=== PATIENT | male | born 1955 | race Caucasian/White ===

== ENCOUNTER 2016-08-26 19:31 | Inpatient (IN) | payer MEDICAID ==
[~2016-08-26] VITALS: Ht 188 cm; Wt 97.4 kg
--- NOTE | ~2016-08-26 | EKG ---
PATIENT: PAOLA DANGELO UNIT #: [id number] Ventricular Rate: 56 BPM Atrial Rate: 56 BPM P-R Interval: 132 ms QRS Duration: 96 ms Q-T Interval: 458 ms QTC Calculation(Bezet): 441 ms P [place]: -4 degrees Calculated R [place]: 68 degrees Calculated T [place]: 69 degrees Diagnosis Line: Sinus bradycardia Diagnosis Line: Otherwise normal ECG Diagnosis Line: No previous ECGs available Diagnosis Line: Confirmed by MILA BARRIOS MD ([id number]) on Diagnosis Line: 08/27/2016 3:52:18 PM INTERPRETING MD: DENIS HERBERT
--- NOTE | ~2016-08-26 | US67 ---
[facility] A Service of [facility] & [facility] RADIOLOGY TEXT RESULTS PATIENT: PAOLA DANGELO LOCATION: C3A 314-01 : 57 UNIT #: [id number] AGE: [address]: Roseanna Van MD SEX: M ORDER DR: [id number] [facility] [address] [place], [place] [address] [id number] I MR#: [id number] Acc #: [id number] NAME: PAOLA DANGELO : 1955 SEX: M STUDY DATE/TIME: 08/26/2016 22:28 UNIT: C3A PCU ROOM: [facility] STUDY DESCRIPTION: US Gallbladder Attending Physician: Roseanna Van M.D. Ordering Physician: Toño Wood D.O. Primary Care Physician: Marilou Buenrostro M.D. MEDICAL IMAGING REPORT This report is preliminary unless electronic signature is present EXAM Right upper quadrant abdominal ultrasound. INDICATIONS Elevated liver enzyme levels. Atypical chest pain, right upper quadrant abdominal pain today. PROCEDURE Jama-scale and Doppler imaging right upper quadrant of the abdomen COMPARISON None. FINDINGS Pancreas is predominantly obscured and not well seen on this study. Liver measures 17.8 cm in length. Liver shows coarsened echotexture. No liver mass is seen on submitted images. There is a small amount of sludge in the gallbladder. No wall thickening or pericholecystic fluid. Common duct measures 3 mm. Right kidney measures 13.4 cm and contains a 2.5 cm cyst. There is a 1.3 cm cyst in the upper pole of the right kidney. IMPRESSION 1. Right renal cyst. 2. Sludge in the gallbladder, but no evidence for acute cholecystitis or bile duct dilation. 3. Liver has coarsened echotexture, which is nonspecific. It could be seen in the setting of chronic liver disease or hepatic steatosis. Dictated by... Shelton Logan M.D. THIS IS AN ELECTRONICALLY VERIFIED REPORT Shelton Logan M.D. at 08/27/2016 9:53 PM [facility] A Service of [facility] RADIOLOGY TEXT RESULTS PATIENT: PAOLA DANGELO LOCATION: C3A 314-01 : 57 UNIT #: [id number] AGE: [address]: Roseanna Van MD SEX: M ORDER DR: Francia TD: 08/27/2016 13:24 JOB #: [id number] MEDICAL IMAGING REPORT Page 1 of 1 COPY
--- NOTE | ~2016-08-26 | CO ---
Unit #: [id number] #: [id number] Patient: PAOLA YOU [id number] [address] [address] [id number] I MR#: [id number] NAME: PAOLA YOU ROOM: 314 Age: 60 Sex: M Admission Date: 08/26/2016 : 1955 Attending Physician: Roseanna Van M.D. Primary Care Physician: Marilou Buenrostro M.D. Consultation Date: 08/28/2016 CONSULTATION REPORT PRIMARY CARE PHYSICIAN Marilou Buenrostro M.D. REASON FOR CONSULTATION Abdominal pain and abnormal LFTs. HISTORY OF PRESENTING ILLNESS Mr. You is a 60 year gentleman, who was admitted yesterday with complains of abdominal pain, which is mostly in the right upper quadrant and the lower chest area. It has been severe, very intermittent, and raised it up to 9 to 10 on a scale of 1 to 10. He has had no chills or fever. He has not had any similar symptoms in the past. The patient has a history of moderate alcoholic consumption, however, slowed down quite a bit in the last several years. PAST MEDICAL HISTORY Significant for hypertension. ALLERGIES None. HOME MEDICATIONS Included Zestoretic, Singulair, Benadryl, and Flexeril. FAMILY HISTORY Noncontributory. SOCIAL HISTORY Moderate alcohol use. History of heavy alcohol use in the past. Smoker. REVIEW OF SYSTEMS Complete 10-point review of systems was done, which is unremarkable other than as mentioned above. PHYSICAL EXAMINATION VITAL SIGNS: Stable. Afebrile. GENERAL: No acute distress. HEENT: Pupils are equal and reactive. Oral mucosa moist. NECK: No JVD. No lymphadenopathy. CHEST: Clear to auscultation bilaterally. CARDIOVASCULAR: Regular rate and rhythm. No murmurs. ABDOMEN: Very tender in right upper quadrant. No guarding. No rebound. No organomegaly or ascites. Unit #: [id number] #: [id number] Patient: PAOLA YOU EXTREMITIES: Without clubbing, cyanosis, or edema. NEUROLOGIC: Intact. SKIN: Warm and dry. DIAGNOSTIC STUDIES LABORATORY RESULTS: Bilirubin today of 7, has gone up from 3.8 over 2 days mostly direct. AST 174, ALT 269, and alkaline phosphatase of 308. Amylase and lipase were normal. Cardiac enzymes were normal. CBC shows white count at 5.7, hemoglobin 13.9, and platelet count of 143. IMAGING STUDIES: Ultrasound of the abdomen was done, shows a sludge in the gallbladder. HIDA scan was done, which shows uptake of the dye in the liver, but no excretion into the duct suggesting possible chronic liver disease. ASSESSMENT AND PLAN The patient's symptoms are worsening LFTs predominantly obstructive pattern suggests biliary obstruction with stones, otherwise I would recommend doing an upper endoscopy and endoscopic retrograde cholangiopancreatography for further evaluation. We will continue with antibiotics and supportive care as well as pain medications. Risks and benefits of the procedure were discussed with the patient and he is agreeable to proceed. The patient understands the risks of pancreatitis also. Thank you, Dr. Paulson for this interesting consult. We will follow along. Dictated by... Melecio Sánchez/silvia TD: 08/28/2016 14:49 JOB #: [id number] CONSULTATION REPORT Page 1 of 1 X Finn Stinson MD CONSULTATION REPORT
--- NOTE | ~2016-08-26 | DS ---
Unit #: [id number] #: [id number] Patient: PAOAL DANGELO [id number] [address] [address] [id number] I MR#: [id number] NAME: PAOLA DANGELO ROOM: 314 Age: 60 Sex: M Admission Date: 08/26/2016 : 1955 Discharge Date: Attending Physician: Roseanna Van M.D. Primary Care Physician: Marilou Buenrostro M.D. DISCHARGE SUMMARY DISCHARGE DIAGNOSES 1. Acute cholecystitis. 2. Acute cholangitis. 3. Biliary stone, status post endoscopic retrograde cholangiopancreatography and laparoscopic cholecystectomy. 4. Sepsis, present on admission. 5. Chest pain, likely referred pain from biliary colic. 6. Hypertension, uncontrolled. 7. Hyponatremia. 8. Hypokalemia. 9. Seasonal allergies. 10. Transaminitis secondary to acute cholangitis. CONSULTATIONS 1. Dr. Stinson. 2. LSA. PROCEDURES The patient had ERCP which shows dilated bile duct, 15 mm. Two large stones present. Sphincterotomy performed. A lot of pus and two stones extracted. 7 x 7 common bile duct stent placed. Also, patient had laparoscopic cholecystectomy on 08/30/2016. LAB DATA Hepatitis panel negative. Sodium 138, potassium 4.1, creatinine 1.1, total bilirubin 2.2, AST 49, ALT 136, alkaline phosphatase 239, albumin 3.1, WBC 5.4, hemoglobin 13.1, platelets 161. Troponins negative. EKG - normal sinus rhythm. HIDA scan shows diffuse uptake of liver. No excretion of biliary system in two hours. That would suggest profound liver dysfunction. Lipase 49. ALLERGIES None. DISCHARGE MEDICATIONS 1. ProAir 90 mcg inhalation four times daily. 2. Lisinopril with hydrochlorothiazide 20/12.5, one tablet p.o. daily. 3. Kathy 25 mg p.o. daily. 4. Nicotine 21 mg daily. 5. Colace 100 p.o. daily p.r.n. constipation. 6. Singulair 10 daily. Unit #: [id number] #: [id number] Patient: PAOLA DANGELO 7. Flexeril 10 mg q.8 p.r.n. muscle spasm. 8. Lortab 5 mg p.o. q.6 p.r.n. pain. HOSPITALIZATION COURSE 60-year-old admitted because of abdominal pain and chest pain. Abdominal pain secondary to acute cholangitis and acute cholecystitis: The patient is seen by Dr. Stinson and LSA. Patient had ERCP and sphincterotomy done . Today on 08/30, the patient had laparoscopic cholecystectomy. Currently feeling better. He wants to eat if tolerates okay and if okay with surgeon patient will be discharged home later today. I am going to check with the surgeon if patient needs antibiotic to take home. If needed, I am going to do a prescription. Waiting on surgeon's callback currently. Chest pain, likely from referred pain from acute cholecystitis: Patient feeling better, was on nitro. EKG negative, troponins negative. Hypertension, uncontrolled: Continue with current home medications. Hyponatremia and hypokalemia, likely from hydrochlorothiazide: Currently resolved. Patient will be discharged home if tolerating regular diet okay and okay with surgeon. Follow with PCP in one week time, follow with LSA in one week time. Dictated by... Melecio Freedman TD: 08/30/2016 11:34 JOB #: [id number] DISCHARGE SUMMARY Page 1 of 1 X Roseanna Van MD DISCHARGE SUMMARY
--- NOTE | ~2016-08-26 | CR84 ---
[facility] A Service of [facility] RADIOLOGY TEXT RESULTS PATIENT: PAOLA DANGELO LOCATION: C3A PC 314-01 : 57 UNIT #: [id number] AGE: [address]: Roseanna Van MD SEX: M ORDER DR: [id number] [address] [place], [place] [address] [id number] I MR#: [id number] Acc #: [id number] NAME: PAOLA DANGELO : 1955 SEX: M STUDY DATE/TIME: 08/28/2016 11:15 UNIT: C3A PCU ROOM: [facility] STUDY DESCRIPTION: CR ERCP Biliary and Pancr SI Attending Physician: Roseanna Van M.D. Ordering Physician: Finn Stinson M.D. Primary Care Physician: Marilou Buenrostro M.D. MEDICAL IMAGING REPORT This report is preliminary unless electronic signature is present EXAM ERCP HISTORY Obstructive jaundice. Fluoroscopy time: 7 minutes 53 seconds. FINDINGS Twelve fluoroscopic spot films were obtained during ERCP procedure performed by the attending endoscopist. Injection of the common bile duct demonstrates moderate intra- and extrahepatic biliary ductal dilatation. Multiple filling defects in the common bile duct are compatible with stones. No strictures identified. Stone extraction was performed. Biliary stent was placed at the conclusion of the procedure. Pancreatic duct was not injected. IMPRESSION 1. Multiple stones in the common bile duct. Stone extraction was performed. 2. Moderate intra- and extrahepatic biliary ductal dilatation. 3. Biliary stent was placed at the conclusion of the procedure. 4. Pancreatic duct was not injected. Dictated by... Tenzin Pisano M.D. THIS IS AN ELECTRONICALLY VERIFIED REPORT Tenzin Pisano M.D. at 08/29/2016 11:01 PM DFL/psc TD: 08/29/2016 00:59 [facility] A Service [facility] RADIOLOGY TEXT RESULTS PATIENT: PAOLA DANGELO LOCATION: C3A PC 314- : 57 UNIT #: [id number] AGE: [address]: Roseanna Van MD SEX: M ORDER DR: JOB #: [id number] MEDICAL IMAGING REPORT Page 1 of 1 COPY
--- NOTE | ~2016-08-26 | CR72 ---
[facility] A Service of [facility] & [facility] RADIOLOGY TEXT RESULTS PATIENT: PAOLA DANGELO LOCATION: [facility] 314-01 : 57 UNIT #: [id number] AGE: [address]: Roseanna Van MD SEX: M ORDER DR: [id number] [facility] [address] [place], [place] [address] [id number] I MR#: [id number] Acc #: [id number] NAME: PAOLA DANGELO : 1955 SEX: M STUDY DATE/TIME: 08/26/2016 19:52 UNIT: A U ROOM: [facility] STUDY DESCRIPTION: CR Chest Single View Portable Attending Physician: Roseanna Van M.D. Ordering Physician: Ed Doctor [id number] [facility] Primary Care Physician: Marilou Buenrostro M.D. MEDICAL IMAGING REPORT This report is preliminary unless electronic signature is present EXAM Portable chest 08/26/2016 HISTORY 60-year-old male with left-sided chest pain beginning today. COMPARISON None. FINDINGS Frontal chest demonstrates clear lungs. No pleural effusion or pneumothorax. Heart size and mediastinum are normal. Pulmonary vasculature normal. IMPRESSION No acute cardiopulmonary findings. Dictated by... Dhaval Wallace M.D. THIS IS AN ELECTRONICALLY VERIFIED REPORT Dhaval Wallace M.D. at 08/27/2016 2:18 PM ALYCE/enrique TD: 08/27/2016 12:52 JOB #: [id number] MEDICAL IMAGING REPORT Page 1 of 1 COPY
--- NOTE | ~2016-08-26 | NM21 ---
[facility] A Service of [facility] & [facility] RADIOLOGY TEXT RESULTS PATIENT: PAOLA DANGELO LOCATION: [facility] 314-01 : 57 UNIT #: [id number] AGE: [address]: Roseanna Van MD SEX: M ORDER DR: [id number] [facility] [address] [place], [place] [address] [id number] I MR#: [id number] Acc #: [id number] NAME: PAOLA DANGELO : 1955 SEX: M STUDY DATE/TIME: 08/27/2016 7:58 UNIT: A U ROOM: [facility] STUDY DESCRIPTION: NM Hepatobiliary W GB Attending Physician: Roseanna Van M.D. Ordering Physician: Toño Wood D.O. Primary Care Physician: Marilou Buenrostro M.D. MEDICAL IMAGING REPORT This report is preliminary unless electronic signature is present EXAM Hepatobiliary scan 08/27 INDICATIONS Right upper quadrant pain, bloating, early satiety over the last 3 weeks. Heartburn. FINDINGS Imaging was obtained of the abdomen for 2 hours after the IV administration of 6 mCi technetium 99m-Choletec. Comparison made with gallbladder ultrasound dated 08/26/2016. There is diffuse uptake by the liver but there is no excretion into the biliary system, gallbladder, or small bowel within 2 hours. This would suggest liver dysfunction. While acute cholecystitis is not technically excluded, the fact that there is no activity seen in the biliary system makes determination of cholecystitis not possible. IMPRESSION 1. Diffuse uptake by the liver with no excretion in the biliary system, small bowel, or gallbladder within 2 hours. This would suggest profound liver dysfunction. As there is no excretion of tracer, I cannot assess for the possibility of acute cholecystitis. Correlation with LFTs recommended. Dictated by... Shukri Curtis Jr., M.D. THIS IS AN ELECTRONICALLY VERIFIED REPORT Shukri Curtis Jr., M.D. at 08/27/2016 1:53 PM RLK/daniele [facility] A Service of [facility] & [facility] RADIOLOGY TEXT RESULTS PATIENT: PAOLA DANGELO LOCATION: A 314-01 : 57 UNIT #: [id number] AGE: [address]: Roseanna Van MD SEX: M ORDER DR: TD: 08/27/2016 10:18 JOB #: [id number] MEDICAL IMAGING REPORT Page 1 of 1 COPY
--- NOTE | ~2016-08-26 | OR ---
Unit #: [id number] #: [id number] Patient: PAOLA DANGELO [id number] [facility]. [place], [place] [address] [id number] Sandrita MR#: [id number] NAME: PAOLA DANGELO ROOM: 314 Date of Procedure: 08/28/2016 Admission Date: 08/26/2016 Surgeon: Finn Stinson M.D. : 1955 Attending Physician: Roseanna Van M.D. Primary Care Physician: Marilou Buenrostro M.D. OPERATIVE REPORT JOB NOTE: CC: PRIMARY CARE PHYSICIAN PROCEDURES PERFORMED Esophagogastroduodenoscopy to descending duodenum, endoscopic retrograde cholangiopancreatography with sphincterotomy, balloon extraction of stones and pus as well as stent placement. INDICATIONS FOR PROCEDURE The patient presented with significant right upper quadrant and atypical chest pain. He has significant obstructive jaundice with rapidly worsening liver function tests, undergoing evaluation with upper endoscopy and ERCP. MEDICATIONS Monitored anesthesia. POSTOPERATIVE FINDINGS 1. EGD exam showed diffuse gastropathy, normal esophagus, normal duodenum, and distal duodenum. 2. ERCP was carried out. Bile duct was significant dilated to 15 mm. There were 2 large stones seen in the distal common bile duct. 3. Sphincterotomy was performed. 4. Lot of pus and 2 stones were extracted. Occlusion cholangiogram at this time was normal. 5. 7 x 7 CBD stent was placed. 6. PD was not injected. PLAN Continue with antibiotics and supportive care. The patient to undergo laparoscopic cholecystectomy. DESCRIPTION OF PROCEDURE The patient was explained of the procedure, risks, and benefits along with risks and benefits of anesthesia. He was brought to the endoscopy room. Propofol anesthesia was given and laid in the prone position. EGD was done first. Scope was passed down the mouth into the esophagus, stomach, duodenum, and distal duodenum. Findings as described. No biopsies taken. Gently, I pulled the scope out of the patient's mouth. At this time, we used a side-viewing ERCP scope which was passed down the mouth into the esophagus, stomach, duodenum. Ampulla was visualized along with the intraduodenal part. After a few attempts, I was able to Unit #: [id number] #: [id number] Patient: PAOLA DANGELO cannulate the common bile duct. Findings have been described above. Sphincterotomy was first performed. Balloon extraction was then carried out. Bile duct was irrigated with normal saline also. I then placed a 7 x 7 stent in the common bile duct as described. At this point, we pulled the scope out. Stomach was decompressed and he tolerated the procedure very well. Dictated by... Melecio Sánchez/silvia TD: 08/28/2016 15:27 JOB #: [id number] OPERATIVE REPORT Page 1 of 1 X Finn Stinson MD X PROCEDURE OPERATIVE NOTE
--- NOTE | ~2016-08-26 | EKG ---
PATIENT: PAOLA DANGELO UNIT #: [id number] Ventricular Rate: 64 BPM Atrial Rate: 64 BPM P-R Interval: 148 ms QRS Duration: 96 ms Q-T Interval: 416 ms QTC Calculation(Bezet): 429 ms P [place]: 54 degrees Calculated R [place]: 50 degrees Calculated T [place]: 57 degrees Diagnosis Line: Normal sinus rhythm Diagnosis Line: Normal ECG Diagnosis Line: No previous ECGs available Diagnosis Line: Confirmed by MILA BARRIOS MD ([id number]) on Diagnosis Line: 08/30/2016 7:27:14 AM INTERPRETING MD: DENIS HERBERT
--- NOTE | ~2016-08-26 | OR ---
Unit #: [id number] #: [id number] Patient: PAOLA DANGELO [id number] [address] [address] [id number] Sandrita MR#: [id number] NAME: PAOLA DANGELO ROOM: 314 Date of Procedure: 08/30/2016 Admission Date: 08/26/2016 Surgeon: Paulino Bose III, M.D. : 1955 Attending Physician: Roseanna Van M.D. Primary Care Physician: Marilou Buenrostro M.D. OPERATIVE REPORT PREOPERATIVE DIAGNOSES 1. Acute cholecystitis. 2. History of common bile duct stones. POSTOPERATIVE DIAGNOSES 1. Acute cholecystitis. 2. History of common bile duct stones. PROCEDURE PERFORMED Laparoscopic cholecystectomy. ANESTHESIA General endotracheal tube anesthesia. SPECIMENS Gallbladder to pathology. COMPLICATIONS None apparent. ESTIMATED BLOOD LOSS Minimal. INDICATIONS FOR PROCEDURE This is a 60-year-old gentleman who presented with acute cholecystitis and also had look like common bile duct stones. He underwent ERCP with stenting. He is here today for laparoscopic cholecystectomy. DESCRIPTION OF PROCEDURE After consent was obtained, the patient was brought to the operating room and placed in the supine position. General anesthetic was administered. His abdomen was prepped and draped in standard surgical fashion. I made a 5-mm incision in the right upper quadrant, entered the abdomen with an Optiview without any difficulty. CO2 pneumoperitoneum was then established. Next, a second 5-mm port was placed in the supraumbilical region and an 11-mm port was placed in the midepigastric region, and a third 5-mm port was placed in the right lateral subcostal region. I was able to grasp the gallbladder, retracted superiorly and laterally. I dissected out the cystic duct and cystic artery, and after these were carefully identified, I placed 2 clips proximally and one clip distally along both structures and then they were divided. The gallbladder was then taken off the liver bed using the hook cautery. Once this was done, Unit #: [id number] #: [id number] Patient: PAOLA DANGELO I then extracted the gallbladder through the epigastric port site after gently dilating the fascia. I had excellent hemostasis and all needle, sponge, and instrument counts were correct x2. I reapproximated the fascia at the epigastric port site with a neoClose device. He tolerated the procedure without any problems and returned to the recovery room in stable condition. Dictated by... Paulino Bose III, M.D. VCL/silvia TD: 09/01/2016 04:15 JOB #: [id number] OPERATIVE REPORT Page 1 of 1 X Paulino Bose III, MD PROCEDURE OPERATIVE NOTE
--- NOTE | ~2016-08-26 | EKG ---
PATIENT: PAOLA DANGELO UNIT #: [id number] Ventricular Rate: 72 BPM Atrial Rate: 72 BPM P-R Interval: 150 ms QRS Duration: 104 ms Q-T Interval: 410 ms QTC Calculation(Bezet): 448 ms P [place]: 54 degrees Calculated R [place]: 48 degrees Calculated T [place]: 53 degrees Diagnosis Line: Normal sinus rhythm Diagnosis Line: Normal ECG Diagnosis Line: Diagnosis Line: Confirmed by MILA BARRIOS MD ([id number]) on Diagnosis Line: 08/28/2016 8:31:44 AM INTERPRETING MD: DENIS HERBERT
--- NOTE | ~2016-08-26 | HP ---
Unit #: [id number] #: [id number] Patient: PAOLA DANGELO [id number] [address] [address] [id number] I MR#: [id number] NAME: PAOLA DANGELO ROOM: 314 Age: 60 Sex: M Admission Date: 08/26/2016 : 1955 Attending Physician: Nedra Paulson M.D. Primary Care Physician: Marilou Buenrostro M.D. HISTORY AND PHYSICAL CHIEF COMPLAINT Right upper quadrant abdominal pain and chest pain. HISTORY This pleasant 60-year-old male with hypertension, seasonal allergies, is admitted for abdominal pain. Patient began to experience right upper quadrant pain worse after taking p.o., radiating to his chest about three weeks ago. Symptoms worsened over the past 24 hours, and he has noted some lightheadedness, fever, sweats, chills, shortness of breath. In the emergency department his initial blood pressure was 87/57 but has improved on its own to 153/100. He is tender in the right upper quadrant. Labs show elevated LFTs, and his gallbladder ultrasound does show sludge in the gallbladder. Also noted his hepatic steatosis versus chronic liver disease. The patient drinks about 6-12 beers each week but not on a daily basis. In the ER he was treated with Pepcid, morphine, Zofran and Zosyn with improvement of his symptoms. PAST MEDICAL HISTORY 1. Hypertension. 2. Seasonal allergies. 3. Left thumb reattachment last year. ALLERGIES None. HOME MEDICATIONS Zestoretic 20/12.5 mg daily; Singulair 10 mg daily; Benylin q.i.d. p.r.n.; Benadryl 25 mg daily as needed; Flexeril 10 mg t.i.d. p.r.n. FAMILY HISTORY Father developed heart disease in his 60s. Also family history of liver and gallbladder disease. SOCIAL HISTORY The patient lives with his . He smokes one pack per day of tobacco. Drinks 6 to 12 beers on a weekly basis. Does not use illicit drugs. REVIEW OF SYSTEMS Is notable for abdominal and chest pain, hypertension, seasonal allergies, tobacco abuse, above mentioned surgery. All other systems were reviewed and otherwise negative. Unit #: [id number] #: [id number] Patient: PAOLA DANGELO PHYSICAL EXAMINATION GENERAL: Pleasant 60-year-old male who currently is in no acute distress. VITAL SIGNS: Temperature is 98.4, pulse 56, respirations 18, initial blood pressure 87/57, but current blood pressure is 153/100. O2 saturation is 98% on room air. HEENT: Eyes - PERRLA, extraocular muscles are intact. Pharynx is benign. NECK: Supple without adenopathy or thyromegaly. CHEST: Clear. CARDIAC: Normal S1 and S2, slightly tachycardic without murmur. ABDOMEN: Bowel sounds are present. Generalized abdominal tenderness, which localizes to the right upper quadrant without definite hepatosplenomegaly or masses. EXTREMITIES: Without clubbing, cyanosis or edema. Pedal pulses are present. NEUROLOGIC: Patient is awake, alert and oriented. Cranial nerves are intact. Equal strength throughout. DIAGNOSTIC STUDIES LABORATORY STUDIES: Hematocrit is 45.5, white blood count is 10.9, normal platelet count. Negative cardiac markers. SMA 12 - glucose 164, sodium 133, potassium 3.2, chloride 97, bilirubin 3.8, most of which is direct, AST 192, ALT 267, alk phos 297, normal lipase. IMAGING STUDIES: Chest x-ray - no acute disease. Ultrasound of the gallbladder shows right renal cyst and sludge in the gallbladder. Abnormal texture of the liver, which could be related to steatosis or chronic liver disease. CARDIOLOGY STUDIES: EKG - sinus bradycardia, rate 56, otherwise normal. ASSESSMENT 1. Right upper quadrant pain with abnormal LFTs and sludge in the gallbladder. Rule out symptomatic gallbladder sludge versus acute cholecystitis not really seen on ultrasound. 2. Hyponatremia and hypokalemia on Zestoretic. 3. Hypertension. 4. Seasonal allergies. PLANS 1. IV fluids. 2. Zosyn. 3. HIDA with CCK to be performed in the morning. Will ask [facility] to see. 4. H2 blockers. 5. Correct electrolytes. 6. SCDs for DVT prophylaxis. 7. Check hepatitis profile. Dictated by Melecio Islas/cari TD: 08/27/2016 05:01 JOB #: [id number] Unit #: [id number] #: [id number] Patient: PAOLA DANGELO HISTORY AND PHYSICAL Page 1 of 1 X Nedra Paulson MD HISTORY AND PHYSICAL
--- NOTE | ~2016-08-26 | CO ---
Unit #: [id number] #: [id number] Patient: PAOLA DANGELO [id number] [facility] [place], [place] [address] [id number] I MR#: [id number] NAME: PAOLA DANGELO ROOM: 314 Age: 60 Sex: M Admission Date: 08/26/2016 : 1955 Attending Physician: Roseanna Van M.D. Primary Care Physician: Marilou Buenrostro M.D. Consultation Date: 08/27/2016 CONSULTATION REPORT HISTORY OF PRESENT ILLNESS Mr. Dangelo is a 60-year-old gentleman, who said over the last 3 weeks that after eating, he has been having epigastric and lower chest pain that he attributed to heartburn; however, over the last 24 hours, he developed severe colicky right upper quadrant pain, radiating to the right flank, associated with nausea and chills. He is uncertain whether or not he had fever. There has been no vomiting, hematemesis, hematochezia, or melena. He does have a pretty significant history of alcohol intake. In the emergency room, an ultrasound was obtained and it showed sludge in the gallbladder, but no common bile duct dilatation. There was also evidence of underlying liver disease, but it was nonspecific. He also was noted to have significant elevation in his liver chemistries. He denies a prior history of liver disease. PAST MEDICAL HISTORY Hypertension, seasonal allergies and he had left thumb reattachment after a table saw accident. ALLERGIES No allergies to medication. MEDICATIONS Include Zestoretic, Singulair, Benylin, Benadryl and Flexeril. FAMILY HISTORY Heart disease and gallbladder disease. SOCIAL HISTORY Lives at home with his . Pack-a-day smoker. Drinks 6 to 12 beers, he says weekly, but when pressed, it seems to be more frequent than that. He denies use of any recreational drugs. REVIEW OF SYSTEMS No fever documented. No hematemesis, hematochezia, melena or weight loss. PHYSICAL EXAMINATION VITAL SIGNS: Temperature is 98.9, pulse 111, respirations 16, blood pressure 124/84. GENERAL: Awake, alert and oriented. HEENT: Mild scleral icterus. CARDIAC: Regular rhythm. LUNGS: Clear. ABDOMEN: He has significant involuntary guarding in the right upper quadrant. I cannot appreciate a mass. He does not have diffuse Unit #: [id number] #: [id number] Patient: PAOLA DANGELO peritonitis. EXTREMITIES: No edema. NEUROLOGIC: Grossly intact. DIAGNOSTIC STUDIES LABORATORY RESULTS: Basic metabolic panel, his potassium is 3.2, otherwise unremarkable. Calcium is 9.0, albumin 4.1, total bilirubin is 3.8 with a direct of 2.5, AST 192, ALT 267, alkaline phosphatase 297, lipase is 49. White count 10,900, normal differential, hemoglobin 15.5, platelets 231,000. Hepatitis profile is pending. IMAGING STUDIES: Ultrasound of the gallbladder showed sludge, but no evidence of acute cholecystitis and no common bile duct dilatation. Chest x-ray, no acute disease. ASSESSMENT AND PLAN A 60-year-old gentleman as described. His right upper quadrant pain certainly is concerning for the possibility of gallbladder disease, but there was no evidence of acute cholecystitis radiographically. HIDA scan has been ordered and is pending. He has no common bile duct dilatation, and has marked elevation of his liver chemistries. Hepatitis profile has been ordered. I am suspicious that he drinks more alcohol than stated and with his tachycardia and underlying liver disease without other evidence of metabolic syndrome, I am going to put him on the alcohol withdrawal protocol as a precaution. Dictated by... Shukri Hoover M.D. ALTON/silvia TD: 08/28/2016 01:10 JOB #: [id number] CONSULTATION REPORT Page 1 of 1 X Shukri Hoover MD X CONSULTATION REPORT
[2016-08-26 20:19] LABS: BASOPHIL# 0.1 X10e3 (0-0.3); BASOPHIL% 0.5 % (0-2.5); EOSINOPHIL# 0.1 X10e3 (0-0.7); EOSINOPHIL% 0.7 % (0.0-7.0); HEMATOCRIT 45.5 % (38.0-50.0); HEMOGLOBIN 15.5 gm/dL (13.0-16.0); LYMPHOCYTE# 1.8 X10e3 (1.0-3.5); LYMPHOCYTE% 16.1 % (17.0-45.0); MEAN CELL VOLUME 99.1 FL (83-96); MEAN CORPUSCULAR HEMOGLOBIN 33.7 PG (28-34); MEAN PLATELET VOLUME 8.5 FL (6.5-11.5); MONOCYTE# 1.2 X10e3 (0-1.0); MONOCYTE% 11.4 % (3.0-12.0); NEUTROPHIL# 7.8 X10e3 (1.5-7.1); NEUTROPHIL% 71.3 % (40-75); PLATELET COUNT 231 X10e3 (140-420); RED BLOOD COUNT 4.59 X10e (3.90-5.60); RED CELL DISTRIBUTION WIDTH 13.3 % (11.0-15.5); WHITE BLOOD COUNT 10.9 X10e3 (4.0-10.5)
[2016-08-26 20:23] LABS: DIFF IND NO
[2016-08-26 20:42] LABS: ALBUMIN SERUM 4.1 g/dL (3.5-5.0); BILIRUBIN, DIRECT 2.5 mg/dL (0.0-0.2); BILIRUBIN,INDIRECT 1.3 mg/dL (0.0-0.9); BILIRUBIN,TOTAL 3.8 mg/dL (0.2-2.0); CREATININE SERUM 1.4 mg/dL (0.6-1.4); GLOM FILT RATE Estimated 54.6 mL/min (>60); POTASSIUM 3.2 mmol/L (3.5-5.1); PROTEIN TOTAL SERUM 7.5 g/dL (6.0-8.3)
[2016-08-26 20:47] LABS: POC - TROPONIN <0.05 ng/mL (<=0.05)
[2016-08-26] MEDS ORDERED: SINGULAIR PO (22:00)
[2016-08-26] MEDS ORDERED: ZESTORETIC 20-1 EAC1 PO (22:00)
[2016-08-26] MEDS ORDERED: PROAIR RESPICL90 MCG INH (22:01)
[2016-08-26] MEDS ORDERED: ALLERGY RELIEF25 MG PO (22:01)
[2016-08-26] MEDS ORDERED: FLEXERIL10 MG PO (22:03)
[2016-08-26 22:04] LABS: POC - CKMB <1.0 ng/mL (0.0-7.9); POC - TROPONIN <0.05 ng/mL (<=0.05)
[2016-08-27 13:51] LABS: HEMATOCRIT 41.4 % (38.0-50.0); HEMOGLOBIN 14.1 gm/dL (13.0-16.0); MEAN CORPUSCULAR HEMOGLOBIN 33.8 PG (28-34); MEAN CORPUSCULAR HGB CONC 34.2 g/dL (30-36); MEAN PLATELET VOLUME 8.4 FL (6.5-11.5); RED BLOOD COUNT 4.18 X10e (3.90-5.60); RED CELL DISTRIBUTION WIDTH 13.5 % (11.0-15.5); WHITE BLOOD COUNT 7.5 X10e3 (4.0-10.5)
[2016-08-27 14:11] LABS: PROTHROMBIN TIME (PATIENT) 11.2 SECONDS (10.0-11.7)
[2016-08-27 14:12] LABS: ALBUMIN SERUM 3.5 g/dL (3.5-5.0); BILIRUBIN,TOTAL 5.5 mg/dL (0.2-2.0); CALCIUM SERUM 8.5 mg/dL (8.4-10.2)
[2016-08-27 20:50] LABS: %MB 1.7 % (0.0-4.0); MB 1.2 ng/ml
[2016-08-27 23:54] LABS: BASOPHIL% 0.6 % (0-2.5); EOSINOPHIL# 0.1 X10e3 (0-0.7); EOSINOPHIL% 1.1 % (0.0-7.0); HEMOGLOBIN 13.9 gm/dL (13.0-16.0); LYMPHOCYTE# 0.9 X10e3 (1.0-3.5); LYMPHOCYTE% 16.2 % (17.0-45.0); MEAN CELL VOLUME 99.3 FL (83-96); MEAN CORPUSCULAR HEMOGLOBIN 33.7 PG (28-34); MEAN CORPUSCULAR HGB CONC 33.9 g/dL (30-36); MEAN PLATELET VOLUME 7.9 FL (6.5-11.5); MONOCYTE# 0.8 X10e3 (0-1.0); MONOCYTE% 14.3 % (3.0-12.0); NEUTROPHIL# 3.9 X10e3 (1.5-7.1); NEUTROPHIL% 67.8 % (40-75); PLATELET COUNT 143 X10e3 (140-420); RED BLOOD COUNT 4.13 X10e (3.90-5.60); RED CELL DISTRIBUTION WIDTH 13.4 % (11.0-15.5); WHITE BLOOD COUNT 5.7 X10e3 (4.0-10.5)
[2016-08-27 23:55] LABS: DIFF IND NO
[2016-08-28 00:16] LABS: ALBUMIN SERUM 3.3 g/dL (3.5-5.0); CALCIUM SERUM 8.5 mg/dL (8.4-10.2); MAGNESIUM 1.7 mg/dL (1.6-3.0); POTASSIUM 3.9 mmol/L (3.5-5.1); PROTEIN TOTAL SERUM 6.8 g/dL (6.0-8.3)
[2016-08-28 02:02] LABS: %MB 1.3 % (0.0-4.0); MB 0.9 ng/ml
[2016-08-29 05:37] LABS: HEMATOCRIT 43.2 % (38.0-50.0); HEMOGLOBIN 14.2 gm/dL (13.0-16.0); MEAN CELL VOLUME 101.9 FL (83-96); MEAN CORPUSCULAR HEMOGLOBIN 33.6 PG (28-34); MEAN PLATELET VOLUME 8.8 FL (6.5-11.5); RED BLOOD COUNT 4.24 X10e (3.90-5.60); RED CELL DISTRIBUTION WIDTH 13.7 % (11.0-15.5); WHITE BLOOD COUNT 5.5 X10e3 (4.0-10.5)
[2016-08-29 06:22] LABS: ALBUMIN SERUM 3.5 g/dL (3.5-5.0); BILIRUBIN,TOTAL 3.4 mg/dL (0.2-2.0); BUN/CREATININE RATIO 14.44; CALCIUM SERUM 8.7 mg/dL (8.4-10.2); CREATININE SERUM 0.9 mg/dL (0.6-1.4); GLOM FILT RATE Estimated 93.2 mL/min (>60); MAGNESIUM 1.9 mg/dL (1.6-3.0); POTASSIUM 3.8 mmol/L (3.5-5.1)
[2016-08-30 05:55] LABS: HEMATOCRIT 39.2 % (38.0-50.0); HEMOGLOBIN 13.1 gm/dL (13.0-16.0); MEAN CELL VOLUME 101.2 FL (83-96); MEAN CORPUSCULAR HEMOGLOBIN 33.7 PG (28-34); MEAN CORPUSCULAR HGB CONC 33.3 g/dL (30-36); MEAN PLATELET VOLUME 8.5 FL (6.5-11.5); RED BLOOD COUNT 3.87 X10e (3.90-5.60); RED CELL DISTRIBUTION WIDTH 13.7 % (11.0-15.5); WHITE BLOOD COUNT 5.4 X10e3 (4.0-10.5)
[2016-08-30 06:55] LABS: HA AB IGM (HEPPAN) Nonreactive (()); HB CORE AB IGM (HEPPAN) Nonreactive (Nonreactive); HB S AG (HEPPAN) Nonreactive (Nonreactive); HEP C AB (HEPPAN) Nonreactive (Nonreactive); HEP C AB SIGNAL TO CUTOFF 0.02 ratio (<1.00)
[2016-08-30 07:12] LABS: ALBUMIN SERUM 3.1 g/dL (3.5-5.0); BILIRUBIN,TOTAL 2.2 mg/dL (0.2-2.0); BUN/CREATININE RATIO 11.81; CALCIUM SERUM 8.5 mg/dL (8.4-10.2); CREATININE SERUM 1.1 mg/dL (0.6-1.4); GLOM FILT RATE Estimated 73.1 mL/min (>60); POTASSIUM 4.1 mmol/L (3.5-5.1); PROTEIN TOTAL SERUM 6.4 g/dL (6.0-8.3)
[2016-08-30] MEDS ORDERED: DOCUSATE SODIU100 MG PO (20:12)
[2016-08-30] MEDS ORDERED: NICOTINE TRANSD14 MG TD (20:12)
[2016-08-30] MEDS ORDERED: LORTAB 5-325 M1 EACH PO (20:13)
== END 2016-08-30 21:30 | disposition home or self-care (01) | DRG 854 ==
LOC: CED 19:31 → C3A PCU 23:40 → CEDOF 23:40 → CED 23:51 → C3A PCU 08-27 02:19 → CEDOF 08-27 02:19 → C3A PCU 08-27 02:19
PROVIDERS: Emergency Medicine; Internal Medicine; Surgery
PROC: 0DJ08ZZ Inspection of Upper Intestinal Tract, Via Natural or Artificial Opening Endoscopic (ICD-10-PCS; 2016-08-28 11:24)
PROC: 0FC98ZZ Extirpation of Matter from Common Bile Duct, Via Natural or Artificial Opening Endoscopic (ICD-10-PCS; 2016-08-28 11:24)
PROC: 0F798DZ Dilation of Common Bile Duct with Intraluminal Device, Via Natural or Artificial Opening Endoscopic (ICD-10-PCS; 2016-08-28 11:24)
PROC: 0FT44ZZ Resection of Gallbladder, Percutaneous Endoscopic Approach (ICD-10-PCS; principal; 2016-08-30 07:30)
DX: A41.9 Sepsis, unspecified organism (principal); K80.43 Calculus of bile duct with acute cholecystitis with obstruction; K80.00 Calculus of gallbladder with acute cholecystitis without obstruction; I10 Essential (primary) hypertension; E87.1 Hypo-osmolality and hyponatremia; E87.6 Hypokalemia; J30.2 Other seasonal allergic rhinitis; F17.210 Nicotine dependence, cigarettes, uncomplicated; K31.9 Disease of stomach and duodenum, unspecified; K21.9 Gastro-esophageal reflux disease without esophagitis
CPT/HCPCS: 36415; 71010; 74330; 76705; 78226; 80048; 80053; 80074; 80076; 82150; 82550; 82553; 83690; 83735; 84484; 85025; 85027; 85610; 85730; 86704; 88304; 93005; 94760; 96365; 96375; 99285; A9537; C9113; J0330; J1100; J1335; J1610; J1885; J2250; J2270; J2405; J2543; J2710; J3010; J3475

== ENCOUNTER → 2016-09-19 | Day surgery (SDC) | payer MEDICAID ==
[~2016-09-19] MED LIST: ALLERGY RELIEF25 MG PO; DOCUSATE SODIU100 MG PO; FLEXERIL10 MG PO; LORTAB 5-325 M1 EACH PO; NICOTINE TRANSD14 MG TD; PROAIR RESPICL90 MCG INH; SINGULAIR PO; ZESTORETIC 20-1 EAC1 PO
--- NOTE | ~2016-09-19 | CR84 ---
[facility] A Service of [facility] & [facility] RADIOLOGY TEXT RESULTS PATIENT: PAOLA DANGELO LOCATION: [facility] MATE : 57 UNIT #: [id number] AGE: [address]: Finn Stinson MD SEX: M ORDER DR: [id number] [facility] [address] [place], [place] [address] [id number] O MR#: [id number] Acc #: [id number] NAME: PAOLA DANGELO : 1955 SEX: M STUDY DATE/TIME: 09/19/2016 8:52 UNIT: [facility] ROOM: STUDY DESCRIPTION: CR ERCP Biliary and Pancr SI Attending Physician: Finn Stinson M.D. Ordering Physician: Finn Stinson M.D. Primary Care Physician: Marilou Buenrostro M.D. MEDICAL IMAGING REPORT This report is preliminary unless electronic signature is present EXAM ERCP 09/19/2016 HISTORY Common bile duct stone and cholecystitis. ERCP performed for stent removal. FINDINGS ERCP was performed by Dr. Stinson. Five spot film radiographs of the right upper quadrant were obtained and 2 minutes 28 seconds of fluoroscopy time was utilized. Surgical clips are seen in the right upper quadrant from prior cholecystectomy. The pancreatic duct was not injected. Contrast injection of the biliary tree shows mild dilatation of the common bile duct. Filling defects characteristic of stones were seen in the common duct. The biliary stent was removed. A balloon catheter was pulled retrograde through the common duct and sludge was removed as per Dr. Stinson. Dictated by... Kwasi Akers M.D. THIS IS AN ELECTRONICALLY VERIFIED REPORT Kwasi Akers M.D. at 09/20/2016 7:18 AM KRT/to TD: 09/19/2016 22:57 JOB #: [id number] MEDICAL IMAGING REPORT Page 1 of 1 COPY
--- NOTE | ~2016-09-19 | OR ---
Unit #: [id number] #: [id number] Patient: PAOLA DANGELO [id number] [address] [address] [id number] O MR#: [id number] NAME: PAOLA DANGELO ROOM: Date of Procedure: 09/19/2016 Admission Date: 09/19/2016 Surgeon: Finn Stinson M.D. : 1955 Attending Physician: Finn Stinson M.D. Primary Care Physician: Marilou Buenrostro M.D. OPERATIVE REPORT PROCEDURES PERFORMED Endoscopic retrograde cholangiopancreatography with stent removal, endoscopic retrograde cholangiopancreatography with balloon extraction of sludge from common bile duct. INDICATIONS FOR PROCEDURE The patient recently had cholangitis and CBD stones, where he had an ERCP with sphincterotomy and stent placement and subsequent laparoscopic cholecystectomy. He is here for removal of stent and repeat assessment. MEDICATIONS Monitored anesthesia. POSTOPERATIVE FINDINGS 1. Existing CBD stent was removed. 2. Common bile duct was injected, shows multiple small filling defects. 3. Balloon extraction was carried out. Lot of sludge was extracted. Occlusion cholangiogram done was negative. 4. PD was not injected. 5. Limited EGD exam was within normal limits. PLAN The patient to call back for any further symptoms. DESCRIPTION OF PROCEDURE The patient was explained of the procedure, risks, and benefits along with risks and benefits of anesthesia. He was brought to the endoscopy room. Propofol anesthesia was given, was laid in the prone position. ERCP side-viewing scope was passed down the mouth into esophagus, stomach, duodenum, and distal duodenum. Stent was seen extending out of the ampulla. Using a snare, I was able to pull the stent out easily. Cannulation was then done. Findings as described above. Balloon extraction was then carried out. Lot of sludge was extracted. Occlusion cholangiogram at this point shows no further filling defects. Pancreatic duct was not injected on purpose. Gently, the scope was pulled out. Stomach was decompressed. He tolerated it well. No major complications seen. Dictated by... Finn Stinson M.D. Unit #: [id number] #: [id number] Patient: PAOLA DANGELO FABRIZIO/silvia TD: 09/19/2016 16:05 JOB #: [id number] OPERATIVE REPORT Page 1 of 1 X Finn Stinson MD PROCEDURE OPERATIVE NOTE
[2016-09-19 11:10] LABS: BASOPHIL% 0.6 % (0-2.5); EOSINOPHIL# 0.2 X10e3 (0-0.7); HEMATOCRIT 40.1 % (38.0-50.0); HEMOGLOBIN 13.8 gm/dL (13.0-16.0); LYMPHOCYTE# 1.8 X10e3 (1.0-3.5); LYMPHOCYTE% 25.5 % (17.0-45.0); MEAN CELL VOLUME 98.3 FL (83-96); MEAN CORPUSCULAR HEMOGLOBIN 33.9 PG (28-34); MEAN CORPUSCULAR HGB CONC 34.5 g/dL (30-36); MEAN PLATELET VOLUME 8.3 FL (6.5-11.5); MONOCYTE% 14.3 % (3.0-12.0); NEUTROPHIL% 56.6 % (40-75); PLATELET COUNT 155 X10e3 (140-420); RED BLOOD COUNT 4.08 X10e (3.90-5.60); RED CELL DISTRIBUTION WIDTH 13.4 % (11.0-15.5)
[2016-09-19 11:11] LABS: DIFF IND NO
[2016-09-19 11:38] LABS: ALBUMIN SERUM 3.5 g/dL (3.5-5.0); BILIRUBIN,TOTAL 0.9 mg/dL (0.2-2.0); BUN/CREATININE RATIO 19.23; CALCIUM SERUM 8.9 mg/dL (8.4-10.2); CREATININE SERUM 1.3 mg/dL (0.6-1.4); GLOM FILT RATE Estimated 59.7 mL/min (>60); POTASSIUM 3.8 mmol/L (3.5-5.1); PROTEIN TOTAL SERUM 6.3 g/dL (6.0-8.3)
== END | disposition home or self-care (01) ==
LOC: COPS 05:54
PROVIDERS: Internal Medicine
DX: Z46.59 Encounter for fitting and adjustment of other gastrointestinal appliance and device (principal); F17.210 Nicotine dependence, cigarettes, uncomplicated; I10 Essential (primary) hypertension; J43.9 Emphysema, unspecified; Z98.890 Other specified postprocedural states; Z90.49 Acquired absence of other specified parts of digestive tract; Z79.899 Other long term (current) drug therapy
CPT/HCPCS: 74330; 80053; 85025; J1610; J2250